=== PATIENT | male | born 1990 ===

== ENCOUNTER 2022-06-10 14:14 | Emergency (ER) | payer BC ==
[2022-06-10] MEDS ORDERED: Sodium Chloride 0.9% 10 ML Syringe FLUSH PRN (14:19)
[2022-06-10] MEDS ORDERED: Sodium Chloride 0.9% 1,000 ML IV ONE (14:20)
[2022-06-10 14:47] LABS: ANION GAP 19.5 mmol/L (5-15); CHLORIDE,CL 104 mmol/L (98-107); ESTIMATED GFR 91 mL/min (>=60); SODIUM,NA 142 mmol/L (136-145)
== END 2022-06-10 14:58 ==
LOC: VM.ED 14:14 → SUPCPDRO 14:14 → EDBD 14:14 → VM.ED 14:58
DX: F10.129 Alcohol abuse with intoxication, unspecified (principal)
CPT/HCPCS: 80053; 80307; 85025; 99283; 99284; J7030